=== PATIENT | male | born 1985 | race Caucasian/White ===

== ENCOUNTER → 2023-02-05 23:26 | Outpatient (CLI) | payer OTHER, SELFPAY ==
[2023-02-05 18:43] LABS: Alanine Aminotransferase 37 U/L (12-78); Albumin Level 4.5 g/dl (3.5-5.0); Albumin/Globulin Ratio 1.6 (1.1-1.8); Alkaline Phosphatase 80 U/L (38-126); Anion Gap 18.1 mEq/L (5-15); Aspartate Amino Transferase 36 U/L (17-59); Bilirubin,Total 0.7 mg/dl (0.2-1.3); Blood Urea Nitrogen 15 mg/dl (9-20); Calcium 9.5 mg/dl (8.4-10.2); Carbon Dioxide 28 mmol/L (22.0-30.0); Chloride 98 mmol/L (98-107); Estimated Glomerular Filt Rate 84 ml/min (>60); GFR (African American) 101 ML/MIN (>60); Globulin 2.9 g/dL (1.3-3.2); Glucose 86 mg/dl (74-100); Potassium 4.1 mmoL/L (3.5-5.1); Sodium 140 mmol/L (136-145); Total Protein,Serum 7.4 g/dl (6.3-8.2)
[2023-02-05 19:15] LABS: Prostate Specific Ag Screen 0.2 ng/ml (0.0-4.0); Thyroid Stimulating Hormone 2.45 uIU/mL (0.465-4.68)
== END ==
LOC: LAB.DROPOF 23:26
PROVIDERS: PCP Family Medicine; Visit Provider Family Medicine
DX: G43.909 Migraine, unspecified, not intractable, without status migrainosus (principal); R68.82 Decreased libido; Z12.5 Encounter for screening for malignant neoplasm of prostate
CPT/HCPCS: 80053; 84443; G0103

== ENCOUNTER 2023-08-02 11:36 | Emergency (ER) | payer OTHER, SELFPAY ==
[2023-08-02 11:37] VITALS: BP 154/101; PULSE 92; RESP 16; TEMP 36.8; O2SAT 97; BMI 33.5
--- NOTE | 2023-08-02 12:03 | HMH.EDGENADL ---
Discharge Plan Disposition Patient Disposition: Home, Self-Care Condition: Fair Prescriptions Prescriptions: New prednisone 10 mg tablet 10 mg PO DIRECTED Qty: 60 0RF Rx Instructions: Take 5 tablets for 4 days, then take 4 tablets for 4 days, then take 3 tablets for 4 days, then take 2 tablets for 4 days, then take 1 tablet for 4 days. No Action omeprazole 20 mg capsule,delayed release(DR/EC) 20 mg PO DAILY Qty: 30 3RF sildenafil 50 mg tablet 50 mg PO DAILY PRN (Reason: male erectile disorder) Qty: 20 2RF Rx Instructions: administer 30 minutes to 4 hours before activity mupirocin 2 % ointment 1 applic topical BID Qty: 22 1RF amoxicillin-pot clavulanate 875-125 mg tablet 1 tab PO BID Qty: 14 0RF Referrals Follow up/Referrals: Delonte Ramon MD [Primary Care Provider] - See instructions Activity Restrictions/Add. Instructions Additional Instructions/Restrictions: You were evaluated in the emergency department today with concerns of skin redness, swelling, and involvement of the genitals. I believe this is likely related to potential poison baltazar/other poison type plant exposures, but it is possibly related to the new supplement you took as well. You have been prescribed steroids and have been given a steroid shot as well. For the steroids, take 5 pills for 4 days each, then 4 pills for 4 days, 3 pills for 4 days, 2 pills for 4 days, and 1 pill for 4 days. In total you will be on this medication for 20 days. I anticipate your reaction will start to improve, however there are side effects to steroids including increased thirst, weight gain, sleeplessness, anxiety. Wash your bedding, clothes, towels as instructed. Monitor yourself for any new or worsening signs of reaction as we discussed and return to the emergency department if these develop. Make an appointment with your primary care physician for reevaluation in 2 to 3 days. Return to the emergency department with any other new, worsening, or otherwise concerning symptoms. Clinical Impressions Clinical Impression: Contact dermatitis Qualifiers: Contact dermatitis type: unspecified Contact dermatitis trigger: non-food plants Qualified Code(s): L25.5 - Unspecified contact dermatitis due to plants, except food Instructions Patient Instructions: Contact Dermatitis Discharge ED Provider: Kailash Gamez Adult [facility] General Chief complaint: Allergic Reaction Stated complaint: swelling throughout body, face swelling Time Seen by Provider: 08/02/23 11:53 Mode of Arrival: Ambulatory Source of Information: Patient Limitations: No Limitations Description of Symptoms (Recalled from ER Triage Doc. by RN): Pt c/o rash and swelling to face and tre area since yesterday. Pt reports cutting down a tree yesterday that he was told could have poison baltazar on it. Pt denies difficulty breathing or swallowing. Denies visiual chances as well. Pt has errythema and swelling around eyes and tre area. History of Present Illness HPI narrative: This 37-year-old male presents to the emergency department with concerns of swelling to the face and genitals that began with a small amount of redness yesterday and has progressed to significant redness and swelling today. He does not have any mucosal involvement, denies difficulties breathing or swallowing. No vomiting. Patient states he has severe allergy to poison baltazar and has had to be hospitalized for before. He was cutting down a tree and thinks he was may be exposed to poison baltazar. He does not have any involvement of the hands and did not wear gloves. Patient did also recently start Nugenix but stopped taking it as soon as he started developing redness yesterday. Unfortunately this reaction has persisted. Patient states he is concerned about the genital swelling and redness though it is not painful or itchy. He also has 1 blistering lesion on the right jaw. He denies any difficulty urinating, painful u
[2023-08-02 12:25] VITALS: BP 122/88; PULSE 88; RESP 16; TEMP 36.8; O2SAT 97
== END 2023-08-02 12:25 | disposition home or self-care (01) ==
PROVIDERS: Emergency Provider Emergency Medicine; PCP Family Medicine
DX: L23.7 Allergic contact dermatitis due to plants, except food; W60.XXXA Contact with nonvenomous plant thorns and spines and sharp leaves, initial encounter
CPT/HCPCS: 96372; 99283

== ENCOUNTER 2024-11-19 15:05 | Outpatient (CLI) | payer BC, SELFPAY | END 2024-11-19 23:59 | disposition home or self-care (01) | LOC: LAB.DROPOF 11-20 10:26 | PROVIDERS: PCP Nurse Practitioner; Visit Provider Nurse Practitioner | DX: R80.9 Proteinuria, unspecified (principal); R31.9 Hematuria, unspecified | CPT/HCPCS: 87086 ==

== ENCOUNTER 2024-11-20 09:51 | Outpatient (CLI) | payer BC, SELFPAY ==
[2024-11-20 10:43] LABS: Basophils % 0.2 % (0.1-2.0); Eosinophils # 0.2 K/mm3 (0.0-0.4); Eosinophils % 3.5 % (0.1-12.0); Hematocrit 47.1 % (42.0-52.0); Hemoglobin 15.9 g/dL (14.1-18.0); Lymphocytes # 1.8 K/mm3 (0.7-4.5); Mean Corpuscular HGB Conc 33.8 g/dL (31.8-35.4); Mean Corpuscular Hemoglobin 29.1 pg (27.0-31.2); Mean Corpuscular Volume 86.1 fl (80-94); Mean Platelet Volume 9.9 fl (7.4-10.4); Monocytes # 0.5 K/mm3 (0.1-1.0); Monocytes % 8.8 % (1.7-9.3); Neutrophils % 54.1 % (37.0-80.0); Platelet Count 329 K/mm3 (142-424); Red Blood Count 5.47 M/mm3 (4.60-6.20); Red Cell Distribution Width 12.9 % (11.5-17.5); White Blood Count 5.5 K/mm3 (4.8-10.8)
[2024-11-20 11:20] LABS: Albumin Level 4.9 g/dl (3.5-5.0); Chloride 104 mmol/L (98-107); Potassium 4.4 mmoL/L (3.5-5.1); Sodium 141 mmol/L (136-145)
[2024-11-20 11:22] LABS: Blood Urea Nitrogen 17 mg/dl (9-20); Estimated Glomerular Filt Rate 67 ml/min (>60); GFR (African American) 81 ML/MIN (>60)
[2024-11-20 11:23] LABS: Alanine Aminotransferase 56 U/L (12-78); Albumin/Globulin Ratio 1.6 (1.1-1.8); Alkaline Phosphatase 75 U/L (38-126); Anion Gap 13.4 mEq/L (5-15); Aspartate Amino Transferase 42 U/L (17-59); Bilirubin,Total 0.8 mg/dl (0.2-1.3); Carbon Dioxide 28 mmol/L (22.0-30.0); Cholesterol 250 mg/dl (140-200); Glucose 94 mg/dl (74-100); Total Protein,Serum 7.9 g/dl (6.3-8.2); Triglycerides 269 mg/dl (30-150); VLDL Cholesterol 54 mg/dL (0-40)
[2024-11-20 11:24] LABS: Chol/HDL Ratio 7.4 (1-3.5); HDL Cholesterol 34 mg/dl (40-60)
[2024-11-20 11:35] LABS: Direct LDL Cholesterol 153.16 mg/dL (100-129)
[2024-11-20 11:43] LABS: 25-OH Vitamin D, Total 19.8 ng/mL (30-100)
[2024-11-20 11:53] LABS: Prostate Specific Ag Screen 0.2 ng/ml (0.0-4.0)
[2024-11-20 11:54] LABS: Thyroid Stimulating Hormone 1.15 uIU/mL (0.465-4.68)
[2024-11-20 12:02] LABS: HIV Combo NEGATIVE (Negative)
[2024-11-20 12:10] LABS: Erythrocyte Sedimentation Rate 6 mm/hr (0-15)
[2024-11-20 12:13] LABS: Hepatitis C Ab Qual. W/ RFX NEGATIVE (Negative)
[2024-11-20 12:15] LABS: Vitamin B12 220 pg/mL (239-931)
[2024-11-20 12:20] LABS: Hemoglobin A1C 5.3 % (4.0-6.0)
[2024-11-21 03:36] LABS: Testosterone,Total 266 ng/dL (264-916)
== END 2024-11-20 23:59 | disposition home or self-care (01) ==
LOC: LAB 09:53
PROVIDERS: PCP Nurse Practitioner; Visit Provider Nurse Practitioner
DX: K21.9 Gastro-esophageal reflux disease without esophagitis (principal); G43.909 Migraine, unspecified, not intractable, without status migrainosus; R68.82 Decreased libido; R53.83 Other fatigue; R31.9 Hematuria, unspecified; R80.0 Isolated proteinuria; E66.9 Obesity, unspecified; Z68.35 Body mass index [BMI] 35.0-35.9, adult; Z12.5 Encounter for screening for malignant neoplasm of prostate; Z13.0 Encounter for screening for diseases of the blood and blood-forming organs and certain disorders involving the immune mechanism; Z13.1 Encounter for screening for diabetes mellitus
CPT/HCPCS: 36415; 80053; 80061; 82306; 82607; 83036; 84403; 84443; 85025; 85651; 86803; 87086; 87389; G0103

== ENCOUNTER 2024-12-07 13:38 | Outpatient (CLI) | payer BC, SELFPAY ==
[2024-12-07 14:45] LABS: Basophils % 0.3 % (0.1-2.0); Eosinophils # 0.2 K/mm3 (0.0-0.4); Eosinophils % 2.9 % (0.1-12.0); Hematocrit 42.9 % (42.0-52.0); Hemoglobin 14.7 g/dL (14.1-18.0); Lymphocytes # 2.7 K/mm3 (0.7-4.5); Lymphocytes % 38.4 % (10-50); Mean Corpuscular HGB Conc 34.3 g/dL (31.8-35.4); Mean Corpuscular Hemoglobin 29.2 pg (27.0-31.2); Mean Corpuscular Volume 85.3 fl (80-94); Monocytes # 0.7 K/mm3 (0.1-1.0); Monocytes % 9.4 % (1.7-9.3); Neutrophils # 3.4 K/mm3 (1.8-7.8); Neutrophils % 48.7 % (37.0-80.0); Platelet Count 334 K/mm3 (142-424); Red Blood Count 5.03 M/mm3 (4.60-6.20); Red Cell Distribution Width 12.7 % (11.5-17.5); White Blood Count 6.9 K/mm3 (4.8-10.8)
[2024-12-07 15:08] LABS: Blood Urea Nitrogen 18 mg/dl (9-20); Estimated Glomerular Filt Rate 67 ml/min (>60); GFR (African American) 81 ML/MIN (>60)
[2024-12-07 15:46] LABS: Microscopic, Urine URINE MICROSCOPIC (MICROSCOPIC)
[2024-12-07 21:04] LABS: Appearance,Urine Clear (Clear); Bacteria,Urine Trace /lpf; Bilirubin,Urine Negative (Negative); Blood, Urine Negative (Negative); Color,Urine Yellow (Yellow); Glucose,Urine (UA) Negative (Negative); Ketones,Urine Negative (Negative); Leukocyte Esterase,Urine Negative (Negative); Nitrate,Urine Negative (Negative); Protein,Urine Negative (Negative); Urobilinogen,Urine 0.2 EU/dl (0.2); WBC,Urine Occasional #/hpf (0-3)
[2024-12-07 21:05] LABS: Mucus,Urine Trace /lpf
[2024-12-08 11:12] LABS: Sex Hormone Binding Globulin 24.5 nmol/L (16.5-55.9); Testosterone,Total 227 ng/dL (264-916)
== END 2024-12-07 23:59 | disposition home or self-care (01) ==
LOC: LAB 13:39
PROVIDERS: PCP Nurse Practitioner; Visit Provider Urology
DX: R31.9 Hematuria, unspecified (principal)
CPT/HCPCS: 36415; 81001; 82565; 84270; 84403; 84520; 85025

== ENCOUNTER 2024-12-21 14:32 | Outpatient (CLI) | payer BC, SELFPAY ==
[2024-12-22 12:11] LABS: Estradiol 17.8 pg/mL (7.6-42.6); FSH 7.8 mIU/mL (1.5-12.4); LH 6.3 mIU/mL (1.7-8.6); Prolactin 10.4 ng/mL (3.9-22.7); Sex Hormone Binding Globulin 25.6 nmol/L (16.5-55.9); Testosterone,Total 185 ng/dL (264-916)
[2024-12-31 04:08] LABS: Dihydrotestosterone DHT 24 ng/dL (.)
== END 2024-12-21 23:59 | disposition home or self-care (01) ==
LOC: LAB 14:33
PROVIDERS: PCP Family Medicine; Visit Provider Urology
DX: N52.9 Male erectile dysfunction, unspecified; R53.83 Other fatigue; R68.82 Decreased libido
CPT/HCPCS: 36415; 82626; 82670; 83001; 83002; 84146; 84270; 84403

== ENCOUNTER 2025-02-01 09:14 | Outpatient (CLI) | payer BC, SELFPAY ==
[2025-02-01 09:40] LABS: Basophils % 0.2 % (0.1-2.0); Eosinophils # 0.1 Kmm3 (0.0-0.4); Eosinophils % 2.7 % (0.1-12.0); Hematocrit 45.2 % (42.0-52.0); Hemoglobin 15.2 g/dL (14.1-18.0); Lymphocytes # 1.8 K/mm3 (0.7-4.5); Lymphocytes % 33.8 % (10-50); Mean Corpuscular HGB Conc 33.6 g/dL (31.8-35.4); Mean Corpuscular Hemoglobin 29.3 pg (27.0-31.2); Mean Corpuscular Volume 87.3 fl (80-94); Mean Platelet Volume 9.7 fl (7.4-10.4); Monocytes # 0.4 K/mm3 (0.1-1.0); Monocytes % 7.3 % (1.7-9.3); Neutrophils # 2.9 K/mm3 (1.8-7.8); Neutrophils % 55.8 % (37.0-80.0); Nucleated Red Blood Cells # 0 10^3/uL; Nucleated Red Blood Cells % 0 %; Platelet Count 296 K/mm3 (142-424); Red Blood Count 5.18 M/mm3 (4.60-6.20); Red Cell Distribution Width 12.5 % (11.5-17.5); Red Cell Distribution Width-SD 39.6 fL; White Blood Count 5.2 K/mm3 (4.8-10.8)
[2025-02-02 12:21] LABS: Sex Hormone Binding Globulin 25.2 nmol/L (16.5-55.9); Testosterone,Total 259 ng/dL (264-916)
[2025-02-03 01:07] LABS: PSA, Free 0.05 ng/mL; Prostate Specific Ag 0.1 ng/mL (0.0-4.0)
== END 2025-02-01 23:59 | disposition home or self-care (01) ==
LOC: LAB 09:14
PROVIDERS: PCP Nurse Practitioner; Visit Provider Urology
DX: N52.9 Male erectile dysfunction, unspecified (principal)
CPT/HCPCS: 36415; 84153; 84154; 84270; 84403; 85025

== ENCOUNTER 2025-03-22 08:36 | Outpatient (CLI) | payer BC, SELFPAY ==
--- OUTSIDE RECORDS SUMMARY | 2025-03-22 08:41 | XMS_ITS | Clinical Summary ---
Author Organization [facility] Address [address] [place] [id number] Phone Care Team Providers Care Public Policy Associate Name Role Phone DhrvuEsha reyes Newton GHOTRA Primary Care Provider [phone] Allergies Active Allergy Reactions Criticality Noted Date Comments Erythromycin Rash 05/11/2012 Sulfa (Sulfonamide Antibiotics) 03/01 Medications fluticasone (FLONASE) 50 mcg/actuation Nasl [place], SuspensionIndic ations:Seasonal allergic rhinitis 1 [place] by Nasal route daily. 1 Bottle 2 6 Active CHANTIX 1 mg Oral Tablet TAKE 1 TAB BY MOUTH 2 TIMES DAILY FOR 90 DAYS. 60 Tab 2 1 Active omeprazole (PRILOSEC) 20 mg Oral Capsule, Delayed Release(E.C.)In dications:H pylori ulcer TAKE 1 CAPSULE BY MOUTH EVERY DAY IN THE MORNING BEFORE BREAKFAST 90 Capsule 1 3 Active Active Problems Problem Noted Date Diagnosed Date Hematemesis with nausea 09/12/2022 Melena 09/12/2022 Immunizations Immunization Administration Dates Next Due Tdap 04/25/2016 Surgical History Surgery Date Site/Laterality Comments EYE SURGERY infant TESTICLE SURGERY 1 year old, undescended testicle, left? UPPER GASTROINTESTINAL ENDOSCOPY 09/12/2022 N/A ESOPHAGOGASTRODUODENOSCOPY with biopsy and control of bleeding; Surgeon: Santana Cabello DO; Location: [facility]; Service: Endoscopy Family History Medical History Relation Name Comments Cancer Father prostate Diabetes Father Uterine Cancer Maternal Aunt Cancer Mother breast Cancer Paternal Grandmother Asthma Sister Relation Name Status Comments Father Maternal Aunt Alive Mother Paternal Grandmother Sister Alive Social History Tobacco Use Types Packs/Day Years Used Date Smoking Tobacco: Former Cigarettes Q uit: 2020 Smokeless Tobacco: Never Tobacco Cessation:Counseling Given: Not Answered Alcohol Use Standard Drinks/Week Comments Yes 0 (1 standard drink = 0.6 oz pur e alcohol) occ PHQ-2 Answer Date Recorded PHQ-2 Total Score 0 10/11/2020 Hunger Vital Sign Answer Date Recorded Within the past 12 months, y ou worried that your food would run out before you got the money to buy more. Never true 09/12/20 22 Within the past 12 months, t he food you bought just didn't last and you didn't have money to get more. Never true 09/12/2022 PRAPARE - Transportation Answer Date Re corded In the past 12 months, has l ack of transportation kept you from medical appointments or from getting medications? No 08/30 In the past 12 months, has l ack of transportation kept you from meetings, work, or from getting things needed for daily living? No 09/12/2022 Sex and Gender Information Value Date Recorded Sex Assigned at Not on file Legal Sex Male 4:38 AM EDT Gender Identity Not on file Sexual Orientation Not on file Obstetrics History Last Filed Vital Signs Vital Sign Reading Time Taken Comments Blood Pressure 120/75 12/12/2022 12:25 PM EDT Pulse 70 12/12/2022 12:25 PM EDT Temperature 36.7 C (98.1 F) 12/12/2022 11:17 AM EDT Respiratory Rate 18 12/12/2022 11:17 AM EDT Oxygen Saturation 96% 12/12/2022 12:25 PM EDT Inhaled Oxygen Concentration - - Weight 115.2 kg (254 lb) 12/12/2022 11:17 AM EDT Height 182.9 cm (6') 12/12/2022 11:17 AM EDT Body Mass Index 34.45 12/12/2022 11:17 AM EDT Plan of Treatment Health Maintenance Due Date Last Done Comments Annual Wellness Exam 1987 Hepatitis B Vaccine (1 of 3 - 19+ 3-dose series) 2003 COVID-19 Vaccine ( - 2023-2 5 season) 2024 Influenza Vaccine (Season Ended) 2025 DTaP/TDaP/Td (2 - Td or Tdap) 04/25/2026 04/25/2016 Meningococcal B Vaccine Aged Out No l onger eligible based on patient's age to complete this topic Pneumococcal Vaccine 0-49 Aged Out No longer eligible based on patient's age to complete this topic Goals Goal Patient Goal Type Associated Problems Recent Progress Patient-Stated? Author Maintain a healthy diet, exercise regularly and maintain an ideal body weight General No Mackenzie Rosas Stay Tobacco Free Lifestyle No Mackenzie Rosas Insurance POS AETNA POS AETNA POS [employer] AETNA POS [address] [place] [address] AETNA POS Advance Directives For more information, please contact: [phone] * Full Code (Latest Code Status on File) Date Activated Date Inactivated Comments 09/12/2022 4:50 PM 09/13/2022 6:59 PM * Full Code Date Activated Date Inactivated Comments 09/12/2022 12:01 PM 09/12/2022 4:50 PM Care Teams Public Policy Associate Relationship Specialty Start Date End Date Esha Bartlett APRN [facility] [address] [place] [id number] PCP - General Nurse Practitioner 09/13/22
[2025-03-23 11:12] LABS: Testosterone,Total 520 ng/dL (264-916)
[2025-03-23 12:13] LABS: Sex Hormone Binding Globulin 24.8 nmol/L (16.5-55.9)
== END 2025-03-22 23:59 | disposition home or self-care (01) ==
LOC: LAB 08:37
PROVIDERS: PCP Nurse Practitioner; Visit Provider Urology
DX: E29.1 Testicular hypofunction (principal); R53.83 Other fatigue
CPT/HCPCS: 36415; 84270; 84403

== ENCOUNTER 2025-06-07 09:22 | Outpatient (CLI) | payer BC, SELFPAY ==
[2025-06-07 09:49] LABS: Hematocrit 45.6 % (42.0-52.0); Hemoglobin 15.0 g/dL (14.1-18.0); Immature Granulocytes % 0.3 %; Mean Corpuscular HGB Conc 32.9 g/dL (31.8-35.4); Mean Corpuscular Hemoglobin 28.5 pg (27.0-31.2); Mean Corpuscular Volume 86.5 fl (80-94); Nucleated Red Blood Cells % 0 %; Platelet Count 267 K/mm3 (142-424); Red Blood Count 5.27 M/mm3 (4.60-6.20); Red Cell Distribution Width-SD 40.4 fL; White Blood Count 6.1 K/mm3 (4.8-10.8)
[2025-06-08 10:14] LABS: Testosterone,Total 164 ng/dL (264-916)
== END 2025-06-07 23:59 | disposition home or self-care (01) ==
LOC: LAB 09:22
PROVIDERS: PCP Nurse Practitioner; Visit Provider Urology
DX: N52.9 Male erectile dysfunction, unspecified (principal); R53.83 Other fatigue
CPT/HCPCS: 36415; 84270; 84403; 85025

== ENCOUNTER 2025-09-06 09:25 | Outpatient (CLI) | payer BC, SELFPAY ==
[2025-09-06 09:39] LABS: Hematocrit 45.2 % (42.0-52.0); Hemoglobin 15.7 g/dL (14.1-18.0); Immature Granulocytes % 0.4 %; Mean Corpuscular HGB Conc 34.7 g/dL (31.8-35.4); Mean Corpuscular Hemoglobin 29.5 pg (27.0-31.2); Mean Corpuscular Volume 84.8 fl (80-94); Nucleated Red Blood Cells % 0 %; Platelet Count 291 K/mm3 (142-424); Red Blood Count 5.33 M/mm3 (4.60-6.20); Red Cell Distribution Width-SD 40.3 fL; White Blood Count 5.4 K/mm3 (4.8-10.8)
[2025-09-07 08:14] LABS: Testosterone,Total 468 ng/dL (264-916)
== END 2025-09-06 23:59 | disposition home or self-care (01) ==
LOC: LAB 09:26
PROVIDERS: PCP Nurse Practitioner; Visit Provider Urology
DX: E29.1 Testicular hypofunction (principal)
CPT/HCPCS: 36415; 84270; 84403; 85025